=== PATIENT | female | born 1960 ===

== ENCOUNTER 2021-03-09 07:20 | Day surgery (SDC) | payer OTHER ==
[~2021-03-09 07:20] MED LIST: CLONAZEPAM2 MG PO; COZAAR50 MG PO; SYNTH PO; ZANT PO; [UNRECOGNIZED DRUG - OTHER] PO
== END 2021-03-09 13:45 | disposition home or self-care (01) ==
LOC: AMB-ENDOS 07:20
PROVIDERS: ATTEND Colon & Rectal Surgery
DX: K62.89 Other specified diseases of anus and rectum (principal); K64.1 Second degree hemorrhoids; Z20.822 Contact with and (suspected) exposure to COVID-19